=== PATIENT | male | born 1955 | race Caucasian/White ===

== ENCOUNTER 2017-07-22 07:10 | Outpatient (CLI) | payer BC | END 2017-07-22 07:11 | disposition home or self-care (01) | LOC: BICULT 07:10 | PROVIDERS: ATTEND Internal Medicine Rheumatology | DX: R79.89 Other specified abnormal findings of blood chemistry (principal) | CPT/HCPCS: 76705 ==

== ENCOUNTER 2018-02-12 17:27 | Inpatient (IN) | payer BC ==
--- NOTE | 2018-02-12 18:30 | RAD ---
SINGLE VIEW CHEST: Date: 02/12/18 COMPARISON: 03/11/16. HISTORY: Fever and sepsis. FINDINGS: Single view of the chest shows a normal sized cardiomediastinal silhouette. There is no evidence of c onsolidation, mass, or pleural effusion. The bones are unremarkable. IMPRESSION: No evidence of acute cardiopulmonary disease. POS: [facility]
[2018-02-12 18:40] LABS: #Eosinphils 0.1 thou/uL (0.0-0.7); #Lymphocytes 1.1 thou/uL (1.20-3.40); #Monocytes 1.1 thou/uL (0.11-0.59); #Neutrophils 10.7 thou/uL (1.40-6.50); %Basophils 0.4 % (0.0-1.0); %Eosinophils 0.4 % (0.0-10.0); %Lymphocytes 8.2 % (21.0-51.0); %Monocytes 8.1 % (0.0-10.0); Hemoglobin 14.4 g/dL (14.0-18.0); Mean Corpuscular HGB CONC 34.1 g/dL (32.0-36.0); Mean Corpuscular Hemoglobin 31.6 pg (27.0-31.0); Mean Corpuscular Volume 92.4 fL (78.0-98.0); Mean Platelet Volume 6.7 fL (7.4-10.4); Platelet Count 235 thou/uL (130-400); RBC Distribution Width 11.7 % (11.5-14.5); Red Blood Cell (RBC) Count 4.55 mill/uL (4.70-6.10); White Blood Cell (WBC) Count 12.9 thou/uL (4.8-10.8)
[2018-02-12 18:47] LABS: Bilirubin Negative (Negative); Blood, Urine Small (Negative); Clarity CLEAR (Clear); Glucose, Urine (Dipstick) Negative (Negative); Leukocyte Moderate (Negative); Nitrite Positive (Negative); Protein, Urine (Dipstick) Negative (Neg-Trace); Specific Gravity, Urine 1.009 (1.002-1.036); Urobilinogen 0.2 mg/dL (0.2-1.0); pH, Urine 5.5 (5.0-9.0)
[2018-02-12 18:50] LABS: Bacteria/HPF 4+ HPF (None Seen); Hyaline Casts/LPF 0-3 HYALINE CAST LPF (0-3 Hyaline); Pathc Cast-AUWi Flag 0.43 (0-2.49); RBC/HPF 0-3 HPF (0-3); Squamous Epithelial None Seen HPF (0-3); WBC/HPF 21-50 HPF (0-3)
[2018-02-12 19:02] LABS: ALT (SGPT) 41 U/L (8-55); AST (SGOT) 27 U/L (5-34); Albumin 4.4 g/dL (3.4-4.8); Alkaline Phosphatase 49 U/L (40-150); Anion Gap 13 mmol/L (10-20); BUN (Urea Nitrogen) 13 mg/dL (8.4-25.7); Bilirubin, Total 0.8 mg/dL (0.2-1.2); Calc. Creatinine Clearance 0 mL/min (70-130); Calcium 9.5 mg/dL (7.8-10.44); Carbon Dioxide 24 mmol/L (23-31); Chloride 102 mmol/L (98-107); Estimated GFR-MDRD 72; Globulin 2.4 g/dL (2.4-3.5); Glucose 100 mg/dL (80-115); Potassium 3.7 mmol/L (3.5-5.1); Protein, Total 6.8 g/dL (5.8-8.1); Sodium 135 mmol/L (136-145)
[2018-02-12] MEDS ORDERED: Cefepime 2 GM in Sodium Chloride 0.9% 100 ML IVPB SCH (19:15)
[2018-02-12 20:27] LABS: Bilirubin Negative (Negative); Blood, Urine Trace (Negative); Clarity CLEAR (Clear); Glucose, Urine (Dipstick) Negative (Negative); Leukocyte Small (Negative); Nitrite Positive (Negative); Protein, Urine (Dipstick) Negative (Neg-Trace); Specific Gravity, Urine 1.005 (1.002-1.036); Urobilinogen 0.2 mg/dL (0.2-1.0)
[2018-02-12 20:28] LABS: Bacteria/HPF None Seen HPF (None Seen); Hyaline Casts/LPF 0-3 HYALINE CAST LPF (0-3 Hyaline); RBC/HPF 0-3 HPF (0-3); Squamous Epithelial None Seen HPF (0-3)
[2018-02-12] MEDS ORDERED: Ondansetron HCl/PF 4 MG/2 ML Vial IVP PRN (21:11)
[2018-02-12] MEDS ORDERED: Ondansetron ODT 4 MG TAB SL PRN (21:11)
[2018-02-12] MEDS: Acetaminophen 325 MG TAB PO PRN (21:20)
[2018-02-12 21:22] VITALS: BMI 26.0
[2018-02-12] MEDS ORDERED: predniSONE 5 MG TAB PO PRN (22:06)
[2018-02-12] MEDS ORDERED: traMADol HCl 50 MG TAB PO PRN ×2 (22:06→23:00)
--- NOTE | 2018-02-12 22:15 | PDOC.FPRHP ---
- History of Present Illness Chief Complaint: Fever, headache, urinary hesitancy History of Present Illness: 62 yo M with h/o BPH, Chronic RA (on Remicade) comes in for fever and headache. 3 weeks ago was hospitalized for urosepsis while travelling in [place], received Levaquin and was discharged with resolution of symptoms. Last week he followed up with Dr. Strauss in clinic where everything checked out okay. This afternoon headache, fever (measured at 101F) and urinary hesitancy. They were worried since he experienced these same symptoms when he was hospitalized so came to the ED. Denies abdominal pain and dysuria. ED Course: UA results were consistent with UTI (Bacteria 4+, Mod LE, +Nitrites) and so was started on 2g Cefepime and cortes placed. - Allergies/Adverse Reactions Allergies Allergy/AdvReac Type Severity Reaction Status Date / Time No Known Drug Allergies Allergy Verified 02/12/18 21:09 - Home Medications Medication Instructions Recorded Confirmed Type Atorvastatin Calcium 20 mg PO HS 02/12/18 02/12/18 History HYDROcodone/Acetaminophen [Todd 1 each PO Q4HR PRN 02/12/18 02/12/18 History 10-325 Tablet] Hydroxychloroquine Sulfate 200 mg PO BID 02/12/18 02/12/18 History [Plaquenil] Tamsulosin HCl [Flomax] 0.4 mg PO DAILY 02/12/18 02/12/18 History predniSONE [Prednisone] 10 mg PO DAILY PRN 02/12/18 02/12/18 History traMADol HCl [Tramadol HCl] 50 mg PO BID PRN 02/12/18 02/12/18 History - History PMHx: BPH, Rheumatoid Arthritis, Hyperlipidemia PSHx: Tonsillectomy, Left wrist, Throat, Left eye, Left foot, Hernia, Left shoulder, Fractured skull, Right wrist FHx: Cancer (mom and dad) Social: Denies smoking, EtOH and illicit drug use. with kids. Occupation : Retired. - Review of Systems General: reports: fever/chills. denies: weight/appetite/sleep changes, night sweats, fatigue Eyes: denies: eye pain, vision changes ENT: denies: nasal congestion, rhinorrhea Respiratory: denies: cough, congestion, shortness of breath Cardiovascular: denies: chest pain, palpitation, edema, orthopnea Gastrointestinal: denies: nausea, vomiting, diarrhea, constipation, abdominal pain, GI bleeding Genitourinary: reports: other (urinary hesitancy). denies: incontinence, dysuria, polyuria, discharge Skin: denies: rashes, lesions, jaundice, itching Musculoskeletal: reports: arthritis/arthralgias (chronic from RA). denies: pain , tenderness, stiffness, swelling Neurological: denies: numbness, syncope, seizure, weakness, other Psychological: denies: anxiety, depression - Vital signs BP: [141/72] HR: [68] RR: [16] Tmax: [99.7] Pox: [94]% on [RA] Wt: [84.776kg] - Physical Exam Constitutional: NAD, awake, alert and oriented, well developed HEENT: normocephalic and atraumatic, no scleral icterus, good dention Heart: RRR, normal S1/S2, no murmurs/rubs/gallops, pulses present Lungs: CTAB, no respiratory distress, good air movement Abdomen: soft, non-tender Musculoskeletal: normal structure Skin: no rash/lesions, good turgor Psychiatric: normal mood and affect Additional comment: Rectal exam: no prostate tenderness FMR H&P: Results - Labs Result Diagrams: 02/12/18 18:25 02/12/18 18:25 Lab results: WBC 12.9 thou/uL (4.8-10.8) H 02/12/18 18:25 Hgb 14.4 g/dL (14.0-18.0) 02/12/18 18:25 Hct 42.1 % (42.0-52.0) 02/12/18 18:25 MCV 92.4 fL (78.0-98.0) 02/12/18 18:25 Plt Count 235 thou/uL (130-400) 02/12/18 18:25 Neutrophils % 83.0 % (42.0-75.0) H 02/12/18 18:25 Sodium 135 mmol/L (136-145) L 02/12/18 18:25 Potassium 3.7 mmol/L (3.5-5.1) 02/12/18 18:25 Chloride 102 mmol/L (98-107) 02/12/18 18:25 Carbon Dioxide 24 mmol/L (23-31) 02/12/18 18:25 BUN 13 mg/dL (8.4-25.7) 02/12/18 18:25 Creatinine 1.04 mg/dL (0.6-1.3) 02/12/18 18:25 Glucose 100 mg/dL (80-115) 02/12/18 18:25 Lactic Acid 1.0 mmol/L (0.5-2.2) 02/12/18 18:25 Calcium 9.5 mg/dL (7.8-10.44) 02/12/18 18:25 Total Bilirubin 0.8 mg/dL (0.2-1.2) 02/12/18 18:25 AST 27 U/L (5-34) 02/12/18 18:25 ALT 41 U/L (8-55) 02/12/18 18:25 Alkaline Phosphatase 49 U/L (40-150) 02/12/18 18:25 Serum Total Protein 6.8 g/dL (5.8-8.1) 02/12/18 18:25 Albumin 4.4 g/dL (3.4-4.8) 02/12/18 18:25 Urine Ketones Negative mg/dL (Negative) 02/12/18 20:16 Urine Blood Trace (Negative) H 02/12/18 20:16 Urine Nitrite Positive (Negative) H 02/12/18 20:16 Ur Leukocyte Esterase Small (Negative) H 02/12/18 20:16 Urine RBC 0-3 HPF (0-3) 02/12/18 20:16 Urine WBC 7-10 HPF (0-3) H 02/12/18 20:16 Ur Squamous Epith Cells None Seen HPF (0-3) 02/12/18 20:16 Urine Bacteria None Seen HPF (None Seen) 02/12/18 20:16 - Radiology Interpretation Chest x-ray Status: image reviewed by me, report reviewed by me FMR H&P: A/P - Problem List (1) Hyperlipidemia Current Visit: Yes Status: Chronic Code(s): E78.5 - HYPERLIPIDEMIA, UNSPECIFIED Qualifiers: Hyperlipidemia type: unspecified Qualified Code(s): E78.5 - Hyperlipidemia , unspecified (2) Rheumatoid arthritis Current Visit: Yes Status: Chronic Code(s): M06.9 - RHEUMATOID ARTHRITIS, UNSPECIFIED Qualifiers: Rheumatoid arthritis location: unspecified site Rheumatoid factor presence : unspecified presence Qualified Code(s): M06.9 - Rheumatoid arthritis, unspecified (3) BPH (benign prostatic hyperplasia) Current Visit: Yes Status: Chronic Code(s): N40.0 - BENIGN PROSTATIC HYPERPLASIA WITHOUT LOWER URINRY TRACT SYMP Qualifiers: Lower urinary tract symptom presence: symptoms present Lower urinary tract symptom detail: unspecified Qualified Code(s): N40.1 - Benign prostatic hyperplasia with lower urinary tract symptoms (4) Sepsis Current Visit: Yes Status: Acute Code(s): A41.9 - SEPSIS, UNSPECIFIED ORGANISM Qualifiers: Sepsis type: sepsis due to unspecified organism Qualified Code(s): A41.9 - Sepsis, unspecified organism (5) Urinary tract infection Current Visit: Yes Status: Acute Qualifiers: Urinary tract infection type: acute cystitis Hematuria presence: without hematuria Qualified Code(s): N30.00 - Acute cystitis without hematuria (6) Headache Current Visit: Yes Status: Acute Code(s): R51 - HEADACHE - Plan 62 yo with PMHx BPH and recent hospitalization for urosepsis presents with sepsis 2/2 recurrent UTI 1. Sepsis 2/2 UTI - s/p 2L NS in ED - Will start LR @ 125 ml/hr - Cefepime 2gm q24 (02/12) - Pending urine culture - Pending blood culture - Strict I/Os 2. Rheumatoid arthritis -Remicade 100mg IV, [id number] -Prednisone 10mg, po PRN -Hydroxychloroquine 200mg, po BID -Hydrocodone-Acetaminophen 10-324mg, po q4-6hrs, PRN: pain 3. HLD -Continue home meds of Atorvastatin 20mg, po, 1 tab, daily 4. BPH -Continue home meds Tamsulosin 0.4mg, po, daily 5. Headache: Patient reports usually gets OCAMPO with UTIs -Will give tylenol PPX: Lovenox for DVT ppx, no GI ppx indicated FMR H&P: Upper Level - Pertinent history 62 yo M who presented with fever, headaches and urinary hesitancy starting this afternoon. Fever to 101 at home. He was hospitalized 3 weeks ago in [place] for urosepsis and was d/c'd on levaquin. Saw Dr. Strauss last week for f/u and had a reportedly negative UA in clinic. He had been feeling well prior to today. - Pertinent findings Gen: awake, alert and oriented x3 HEENT: EOMI, conjunctiva non-injected CV: RRR, no murmur noted RESP: CTAB ABD: nondistended, bowel sounds present BACK: no CVAT Ext: no cyanosis or edema - Plan Date/Time: 02/12/18 9964 I, Kayleen Huntley MD, PGY-3, have evaluated this patient and agree with findings/ plan as outlined by risk management internship resident. Pertinent changes/additions are listed here. 62 yo M with PMHx recurrent UTI with urosepsis here with sepsis likely 2/2 UTI 1. Sepsis 2/2 UTI: s/p cefepime 2g in ED and fluids. LR @ 125 mL/hr. 2. BPH: Home Flomax. Per patient, urology recommended prostate resection. Will need close follow-up outpatient unless unable to void here. Cortes currently in place. Will need voiding trial and post-void residual tomorrow. 3. RA: On hydroxychloroquine, remicaide q8 weeks. Has tramadol, norco and prednisone at home PRN. Will give home meds here. 4. HLD: Atorvastatin PPX: Lovenox Attending Addendum - Attending Addendum Date/Time: 02/12/18 4175 I personally evaluated the patient and discussed the management with Dr. Orellana and Dr. Huntley I agree with the History, Examination, Assessment and Plan documented above with any addition or exceptions noted below. 62 yo male with history of BPH needed resection due to urinary retention presents for evaluation of UTI symptoms. Patient recently hospitalized for sepsis related to UTI. Has been since treated with resolution of symptoms and negative UA in clinic last week. This weekend, however, symptoms return. Now presents with positive UA. VS reviewed. Fever present. Labs reviewed. Elevated WBC but lactic acid WNL. Will admit for IV antibiotics. Continue cortes for urinary retention due to BPH obstruction. Cultures obtained and pending. Jolene
[2018-02-12] MEDS ORDERED: HYDROcodone/Acetaminophen 10/325 mg Tablet PO PRN (22:42)
[2018-02-13] MEDS ORDERED: HYDROcodone/Acetaminophen 10/325 mg Tablet PO SCH (01:00)
[2018-02-13] MEDS: Cefepime 2 GM in Sodium Chloride 0.9% 100 ML IVPB SCH ×2 (08:46→20:58)
[2018-02-13] MEDS: Tamsulosin HCl 0.4 MG CAP PO SCH (08:46)
[2018-02-13] MEDS: Hydroxychloroquine Sulfate 200 MG TAB PO SCH ×2 (08:46→21:05)
--- NOTE | 2018-02-13 09:02 | PDOC.FM ---
- Subjective Subjective: Patient denies any pain this AM. He has a cortes in place. He denies abdominal pain, fevers. He has not tried to eat anything, but denies N/V. - Objective MAR Reviewed: Yes Vital Signs & Weight: Vital Signs (12 hours) Temp Pulse Resp BP BP Pulse Ox 02/13/18 08:22 99.0 F 61 16 103/59 L 95 02/13/18 04:02 96.8 F L 62 16 100/56 L 93 L 02/13/18 00:00 98 02/12/18 23:15 97.0 F L 72 16 117/71 98 02/12/18 21:20 98.6 F 70 20 130/80 98 02/12/18 21:10 98.6 F 70 20 Weight Weight 84.623 kg I&O: 02/12/18 02/13/18 02/14/18 06:59 06:59 06:59 Intake Total 700 Output Total 1400 Balance -700 Result Diagrams: 02/12/18 18:25 02/12/18 18:25 <Mary Ann Purcell - Last Filed: 02/13/18 08:54> - Objective Vital Signs & Weight: Vital Signs (12 hours) Temp Pulse Resp BP BP Pulse Ox 02/13/18 12:30 98.6 F 63 16 108/71 94 L 02/13/18 09:05 99.0 F 61 16 95 02/13/18 08:22 99.0 F 61 16 103/59 L 95 02/13/18 04:02 96.8 F L 62 16 100/56 L 93 L Weight Weight 84.623 kg I&O: 02/12/18 02/13/18 02/14/18 06:59 06:59 06:59 Intake Total 700 Output Total 1400 200 Balance -700 -200 Result Diagrams: 02/12/18 18:25 02/12/18 18:25 <Ashok Estrella - Last Filed: 02/13/18 13:48> Phys Exam - Physical Examination Constitutional: NAD HEENT: moist MMs, sclera anicteric Respiratory: no wheezing, no rales, no rhonchi, clear to auscultation bilateral Cardiovascular: RRR, no significant murmur, no rub Gastrointestinal: soft, non-tender, no distention, positive bowel sounds Musculoskeletal: no edema, pulses present Neurological: non-focal, moves all 4 limbs Psychiatric: normal affect, A&O x 3 Skin: normal turgor, cap refill <2 seconds <Mary Ann Purcell - Last Filed: 02/13/18 08:54> Dx/Plan (1) Sepsis Code(s): A41.9 - SEPSIS, UNSPECIFIED ORGANISM Status: Acute QualifierTitle: Sepsis type: sepsis due to unspecified organism Qualified Code(s): A41.9 - Sepsis, unspecified organism (2) Urinary tract infection Status: Acute QualifierTitle: Urinary tract infection type: acute cystitis Hematuria presence: without hematuria Qualified Code(s): N30.00 - Acute cystitis without hematuria (3) BPH (benign prostatic hyperplasia) Code(s): N40.0 - BENIGN PROSTATIC HYPERPLASIA WITHOUT LOWER URINRY TRACT SYMP Status: Chronic QualifierTitle: Lower urinary tract symptom presence: symptoms present Lower urinary tract symptom detail: unspecified Qualified Code(s): N40.1 - Benign prostatic hyperplasia with lower urinary tract symptoms (4) Hyperlipidemia Code(s): E78.5 - HYPERLIPIDEMIA, UNSPECIFIED Status: Chronic QualifierTitle: Hyperlipidemia type: unspecified Qualified Code(s): E78.5 - Hyperlipidemia, unspecified (5) Rheumatoid arthritis Code(s): M06.9 - RHEUMATOID ARTHRITIS, UNSPECIFIED Status: Chronic QualifierTitle: Rheumatoid arthritis location: unspecified site Rheumatoid factor presence: unspecified presence Qualified Code(s): M06.9 - Rheumatoid arthritis, unspecified - Plan Plan: 62 yo with PMHx BPH and recent hospitalization for urosepsis presents with sepsis 2/2 recurrent UTI Sepsis 2/2 UTI Initially presented with tachycardia, fever, elevated WBC count, and UTI. s/p 2L NS and Cefepime in the ED. - LR @ 125 ml/hr - Cefepime 2gm q12h (02/12) - urine culture - blood culture - Strict I/Os - Cortes was placed in the ED, will remove at this time and do voiding trial Rheumatoid arthritis -Remicade 100mg IV, b4ctxam -Prednisone 10mg, po PRN -Hydroxychloroquine 200mg, po BID -Hydrocodone-Acetaminophen 10-324mg, po q4-6hrs, PRN: pain HLD -Continue home meds of Atorvastatin 20mg, po, 1 tab, daily BPH -Continue home meds Tamsulosin 0.4mg, po, daily -patient due to see his Urologist, Dr. Hein this week for consideration of surgery. <Mary Ann Purcell - Last Filed: 02/13/18 08:54> Attending Addendum - Attending Addendum Date/Time: 02/13/18 6442 I personally evaluated the patient and discussed the management with Dr. Purcell I agree with the History, Examination, Assessment and Plan documented above with any addition or exceptions noted below.Patient with RA on biological agent with Complicated recurrent UTI recently treated with Levaquin x 7 days .History of BPH discussing currently with Urologist about elective TURP. Cortes out patient and able to void patient feeling well, afebrile ok to dismiss to f/u with Urologist on at least two week po antibiotic when identity and sensitivities documented would rec continue IV antibiotic until then. <Ashok Estrella - Last Filed: 02/13/18 13:48>
[2018-02-13] MEDS: Acetaminophen 325 MG TAB PO PRN ×2 (09:04→18:31)
[2018-02-13] MEDS ORDERED: Famotidine 20 MG TAB PO SCH (18:00)
[2018-02-13] MEDS ORDERED: Melatonin 3 MG TAB PO PRN (20:46)
[2018-02-13] MEDS: Cefepime 2 GM, Admixture Fee 1 EACH in Sodium Chloride 0.9% 100 ML IVPB SCH (21:02)
[2018-02-13] MEDS: Atorvastatin Calcium 20 MG TAB PO SCH (21:06)
[2018-02-14 06:50] LABS: #Basophils 0.1 thou/uL (0.0-0.2); #Eosinphils 0.2 thou/uL (0.0-0.7); #Lymphocytes 1.6 thou/uL (1.20-3.40); #Monocytes 0.7 thou/uL (0.11-0.59); %Basophils 0.8 % (0.0-1.0); %Eosinophils 3.1 % (0.0-10.0); %Lymphocytes 21.1 % (21.0-51.0); %Monocytes 9.5 % (0.0-10.0); %Neutrophils 65.5 % (42.0-75.0); Hemoglobin 14.4 g/dL (14.0-18.0); Mean Corpuscular HGB CONC 33.6 g/dL (32.0-36.0); Mean Corpuscular Volume 95.2 fL (78.0-98.0); Mean Platelet Volume 6.9 fL (7.4-10.4); Platelet Count 218 thou/uL (130-400); RBC Distribution Width 11.9 % (11.5-14.5); Red Blood Cell (RBC) Count 4.49 mill/uL (4.70-6.10); White Blood Cell (WBC) Count 7.6 thou/uL (4.8-10.8)
[2018-02-14 07:11] LABS: Anion Gap 11 mmol/L (10-20); BUN (Urea Nitrogen) 13 mg/dL (8.4-25.7); Calc. Creatinine Clearance 90 mL/min (70-130); Carbon Dioxide 26 mmol/L (23-31); Chloride 106 mmol/L (98-107); Estimated GFR-MDRD 75; Glucose 114 mg/dL (80-115); Potassium 4.8 mmol/L (3.5-5.1); Sodium 138 mmol/L (136-145)
--- NOTE | 2018-02-14 08:07 | PDOC.FM ---
- Subjective Subjective: Patient denies any complaints overnight. He denies any fevers, abdominal pain, dysuria. He reports some difficulty with hesitancy and fully emptying his bladder. He reports tolerating PO and ambulating without difficulty. - Objective MAR Reviewed: Yes Vital Signs & Weight: Vital Signs (12 hours) Temp Pulse Resp BP Pulse Ox 02/13/18 20:38 98.6 F 66 16 104/57 L 97 Weight Weight 84.623 kg I&O: 02/13/18 02/14/18 02/15/18 06:59 06:59 06:59 Intake Total 700 1300 Output Total 1400 500 Balance -700 800 Result Diagrams: 02/14/18 06:43 02/14/18 06:43 <Mary Ann Purcell - Last Filed: 02/14/18 08:03> - Objective Vital Signs & Weight: Vital Signs (12 hours) Temp Pulse Resp BP Pulse Ox 02/14/18 08:25 98.3 F 65 18 94 L 02/14/18 08:20 98.3 F 65 18 108/72 94 L Weight Weight 84.623 kg I&O: 02/13/18 02/14/18 02/15/18 06:59 06:59 06:59 Intake Total 700 1300 Output Total 1400 500 Balance -700 800 Result Diagrams: 02/14/18 06:43 02/14/18 06:43 <Sharad Bowser - Last Filed: 02/14/18 11:35> Phys Exam - Physical Examination Constitutional: NAD HEENT: moist MMs Respiratory: no wheezing, no rales, no rhonchi, clear to auscultation bilateral Cardiovascular: RRR, no significant murmur, no rub Gastrointestinal: soft, non-tender, no distention, positive bowel sounds Musculoskeletal: no edema, pulses present Neurological: non-focal, moves all 4 limbs Psychiatric: normal affect, A&O x 3 Skin: normal turgor, cap refill <2 seconds <Mary Ann Purcell - Last Filed: 02/14/18 08:03> Dx/Plan (1) Sepsis Code(s): A41.9 - SEPSIS, UNSPECIFIED ORGANISM Status: Acute QualifierTitle: Sepsis type: sepsis due to unspecified organism Qualified Code(s): A41.9 - Sepsis, unspecified organism (2) Urinary tract infection Status: Acute QualifierTitle: Urinary tract infection type: acute cystitis Hematuria presence: without hematuria Qualified Code(s): N30.00 - Acute cystitis without hematuria (3) BPH (benign prostatic hyperplasia) Code(s): N40.0 - BENIGN PROSTATIC HYPERPLASIA WITHOUT LOWER URINRY TRACT SYMP Status: Chronic QualifierTitle: Lower urinary tract symptom presence: symptoms present Lower urinary tract symptom detail: unspecified Qualified Code(s): N40.1 - Benign prostatic hyperplasia with lower urinary tract symptoms (4) Hyperlipidemia Code(s): E78.5 - HYPERLIPIDEMIA, UNSPECIFIED Status: Chronic QualifierTitle: Hyperlipidemia type: unspecified Qualified Code(s): E78.5 - Hyperlipidemia, unspecified (5) Rheumatoid arthritis Code(s): M06.9 - RHEUMATOID ARTHRITIS, UNSPECIFIED Status: Chronic QualifierTitle: Rheumatoid arthritis location: unspecified site Rheumatoid factor presence: unspecified presence Qualified Code(s): M06.9 - Rheumatoid arthritis, unspecified - Plan Plan: 62 yo with PMHx BPH and recent hospitalization for sepsis 2/2 UTI presents with sepsis 2/2 recurrent UTI Sepsis 2/2 UTI Initially presented with tachycardia, fever, elevated WBC count, and UTI. s/p 2L NS and Cefepime in the ED. Patient has been getting recurrent UTI's due to urinary retention. He is supposed to get a prostate surgery soon per his urologist. He had a clean UA 3 days prior to admission in clinic. - Cefepime 2gm q12h (02/12) - urine culture, prelim cx growing gram negative rods - blood culture, NG @ 48 hrs - Strict I/Os - Cortes was placed in the ED, was removed yesterday and pt was able to void on his own. His post-void residual was 350 mL. - Will transition to PO abx today pending cx results and d/c patient home. Rheumatoid arthritis -Remicade 100mg IV, [id number] -Prednisone 10mg, po PRN -Hydroxychloroquine 200mg, po BID -Hydrocodone-Acetaminophen 10-324mg, po q4-6hrs, PRN: pain HLD -Continue home meds of Atorvastatin 20mg, po, 1 tab, daily BPH -Continue home meds Tamsulosin. -patient due to see his Urologist, Dr. eHin this week for consideration of surgery. <Mary Ann Purcell - Last Filed: 02/14/18 08:03> Attending Addendum - Attending Addendum Date/Time: 02/14/18 7326 I personally evaluated the patient and discussed the management with Dr. Purcell. I agree with and repeated the History, Examination, Assessment and Plan documented above with any addition or exceptions noted below. Sepsis resolved. Await sensitivities and discharge. Will d/w urology concerning retention, as they may desire for a continued cortes vs straight cath. RA stable. <Sharad Bowser - Last Filed: 02/14/18 11:35>
[2018-02-14] MEDS: Tamsulosin HCl 0.4 MG CAP PO SCH (09:03)
[2018-02-14] MEDS: Enoxaparin Sodium 40 MG/0.4 ML SYRINGE SC SCH (09:03)
[2018-02-14] MEDS: Cefepime 2 GM, Admixture Fee 1 EACH in Sodium Chloride 0.9% 100 ML IVPB SCH ×2 (09:03→19:47)
[2018-02-14] MEDS: Famotidine 20 MG TAB PO SCH ×2 (09:03→20:23)
[2018-02-14] MEDS: Hydroxychloroquine Sulfate 200 MG TAB PO SCH ×2 (09:03→20:24)
[2018-02-14] MEDS: Acetaminophen 325 MG TAB PO PRN (17:53)
[2018-02-14] MEDS: Atorvastatin Calcium 20 MG TAB PO SCH (20:23)
[2018-02-15 08:04] VITALS: BP 125/74; TEMP 98.1
[2018-02-15] MEDS: Tamsulosin HCl 0.4 MG CAP PO SCH (08:47)
[2018-02-15] MEDS: Famotidine 20 MG TAB PO SCH (08:47)
[2018-02-15] MEDS: Cefepime 2 GM, Admixture Fee 1 EACH in Sodium Chloride 0.9% 100 ML IVPB SCH (08:47)
[2018-02-15] MEDS: Hydroxychloroquine Sulfate 200 MG TAB PO SCH (08:47)
[2018-02-15] MEDS: Enoxaparin Sodium 40 MG/0.4 ML SYRINGE SC SCH (08:48)
--- NOTE | 2018-02-15 09:17 | PDOC.FM ---
- Subjective Subjective: Pt doing well this AM. Denies any complaints. Tolerating PO and ambulating without difficulty. Has been doing self caths yesterday without difficulty and denies any pain. - Objective MAR Reviewed: Yes Vital Signs & Weight: Vital Signs (12 hours) Temp Pulse Resp BP Pulse Ox 02/15/18 08:03 98.1 F 66 16 125/74 94 L Weight Weight 84.623 kg I&O: 02/14/18 02/15/18 02/16/18 06:59 06:59 06:59 Intake Total 1300 550 Output Total 500 1150 Balance 800 -600 Result Diagrams: 02/14/18 06:43 02/14/18 06:43 <Mary Ann Purcell - Last Filed: 02/15/18 09:15> - Objective Vital Signs & Weight: Vital Signs (12 hours) Temp Pulse Resp BP Pulse Ox 02/15/18 08:20 98.1 F 66 16 94 L 02/15/18 08:03 98.1 F 66 16 125/74 94 L Weight Weight 84.623 kg I&O: 02/14/18 02/15/18 02/16/18 06:59 06:59 06:59 Intake Total 1300 550 Output Total 500 1150 Balance 800 -600 Result Diagrams: 02/14/18 06:43 02/14/18 06:43 <Sharad Bowser - Last Filed: 02/15/18 13:10> Phys Exam - Physical Examination Constitutional: NAD HEENT: moist MMs, sclera anicteric Respiratory: no wheezing, no rales, no rhonchi, clear to auscultation bilateral Cardiovascular: RRR, no significant murmur, no rub Gastrointestinal: soft, non-tender, no distention, positive bowel sounds Musculoskeletal: no edema, pulses present Neurological: non-focal, moves all 4 limbs Psychiatric: normal affect, A&O x 3 <Mary Ann Purcell - Last Filed: 02/15/18 09:15> Dx/Plan (1) Sepsis Code(s): A41.9 - SEPSIS, UNSPECIFIED ORGANISM Status: Acute QualifierTitle: Sepsis type: sepsis due to unspecified organism Qualified Code(s): A41.9 - Sepsis, unspecified organism (2) Urinary tract infection Status: Acute QualifierTitle: Urinary tract infection type: acute cystitis Hematuria presence: without hematuria Qualified Code(s): N30.00 - Acute cystitis without hematuria (3) BPH (benign prostatic hyperplasia) Code(s): N40.0 - BENIGN PROSTATIC HYPERPLASIA WITHOUT LOWER URINRY TRACT SYMP Status: Chronic QualifierTitle: Lower urinary tract symptom presence: symptoms present Lower urinary tract symptom detail: unspecified Qualified Code(s): N40.1 - Benign prostatic hyperplasia with lower urinary tract symptoms (4) Hyperlipidemia Code(s): E78.5 - HYPERLIPIDEMIA, UNSPECIFIED Status: Chronic QualifierTitle: Hyperlipidemia type: unspecified Qualified Code(s): E78.5 - Hyperlipidemia, unspecified (5) Rheumatoid arthritis Code(s): M06.9 - RHEUMATOID ARTHRITIS, UNSPECIFIED Status: Chronic QualifierTitle: Rheumatoid arthritis location: unspecified site Rheumatoid factor presence: unspecified presence Qualified Code(s): M06.9 - Rheumatoid arthritis, unspecified - Plan Plan: 62 yo with PMHx BPH and recent hospitalization for sepsis 2/2 UTI presents with sepsis 2/2 recurrent UTI Sepsis 2/2 UTI Initially presented with tachycardia, fever, elevated WBC count, and UTI. s/p 2L NS and Cefepime in the ED. Patient has been getting recurrent UTI's due to urinary retention. He is supposed to get a prostate surgery soon per his urologist. He had a clean UA 3 days prior to admission in clinic. - Cefepime 2gm q12h (02/12), will d/c today and start levaquin for 7 days - urine culture grew Klebsiella sensitive to everything except macrobid - blood culture, NG @ 48 hrs - Strict I/Os - Doing self caths per urology recs and will f/u with urology outpt - Will transition to PO abx today and d/c patient home. Rheumatoid arthritis -Remicade 100mg IV, [id number] -Prednisone 10mg, po PRN -Hydroxychloroquine 200mg, po BID -Hydrocodone-Acetaminophen 10-324mg, po q4-6hrs, PRN: pain HLD -Continue home meds of Atorvastatin 20mg, po, 1 tab, daily BPH -Continue home meds Tamsulosin. -patient due to see his Urologist, Dr. Hein tomorrow for consideration of surgery. <Mary Ann Purcell - Last Filed: 02/15/18 09:15> Attending Addendum - Attending Addendum Date/Time: 02/15/18 1432 I personally evaluated the patient and discussed the management with Dr. Purcell. I agree with and repeated the History, Examination, Assessment and Plan documented above with any addition or exceptions noted below. No dysuria/urgency/hematuria. No f/c. Outpatient antibiotics and follow up with urology. <Sharad Bowser - Last Filed: 02/15/18 13:10>
--- NOTE | 2018-02-16 11:17 | DIS-2 ---
DATE OF ADMISSION: 02/12/2018 DATE OF DISCHARGE: 02/15/2018 ADMITTING ATTENDING: Dr. Azra Vines. DISCHARGE ATTENDING: Dr. Sharad Bowser. ADMITTING RESIDENT: Dr. Cecy Orellana. DISCHARGE RESIDENT: Dr. Mary Ann Purcell. CONSULTATIONS: None. PROCEDURES: None. PRIMARY DIAGNOSES: 1. Sepsis. 2. Urinary tract infection. 3. Urinary retention. 4. Leukocytosis. SECONDARY DIAGNOSES: 1. Benign prostatic hypertrophy. 2. Hyperlipidemia. 3. Rheumatoid arthritis. DISCHARGE MEDICATIONS: 1. Atorvastatin 20 mg p.o. at bedtime. 2. [place] 10/325 mg 1 tab p.o. q.4 hours p.r.n. pain. 3. Plaquenil 200 mg p.o. b.i.d. 4. Prednisone 10 mg p.o. daily p.r.n. pain. 5. Bactrim-DS 1 tab p.o. b.i.d. for 7 days. 6. Tamsulosin 0.4 mg p.o. daily. 7. Tramadol 50 mg p.o. b.i.d. p.r.n. pain. DISCONTINUED MEDICATIONS: None. HISTORY OF PRESENT ILLNESS AND HOSPITAL COURSE: This is a 62-year-old male with a history of rheumat oid arthritis and BPH, who presented to the ER septic with a fever and white blood cell count of 12.9 . The patient was found to have a urinary tract infection with positive nitrites, moderate leukocyte esterase, 21-50 white blood cell count, 4+ bacteria. The patient had recently been hospitalized 2 w eeks ago when he had become bacteremic and septic secondary to a Klebsiella urinary tract infection. He has been treated with Levaquin for this. The patient had been being worked up for urinary retent ion by urologist, Dr. Hein and had plans for possible TURP in the future. The patient was treat ed initially with cefepime and improved significantly from a sepsis standpoint, he was also given flu ids initially. He initially had a Longo placed and then on his second day of hospitalization, the Fo andrey was removed and he was given a voiding trial; however, he was found to have a postvoid residual o f 350. The patient's urologist was contacted and it was discussed for him to be sent home either wit h self catheterization 4 times daily or a Longo whichever the patient desired. The patient elected t o do self catheterization 4 times daily. The patient was able to do this without any difficulty. Th e urine culture grew out Klebsiella pneumonia that was pansensitive except indeterminate to nitrofura ntoin. He was discharged home on Bactrim for 7-day course. The patient has a followup appointment w ith his urologist the day after discharge. DISPOSITION: Stable. DISCHARGE INSTRUCTIONS: 1. Location: Home. 2. Diet: Heart healthy. 3. Activity: As tolerated. 4. Follow up with Dr. Strauss within 7-[address] Hein within 1-3 days.
== END 2018-02-15 10:45 | disposition home or self-care (01) | DRG 872 ==
LOC: ERS 17:27 → ONC 19:35 → OBSVTOIN 19:35
PROVIDERS: ADMIT Student in an Organized Health Care Education/Training Program; ATTEND Student in an Organized Health Care Education/Training Program
DX: A41.9 Sepsis, unspecified organism (principal); N39.0 Urinary tract infection, site not specified; N40.1 Benign prostatic hyperplasia with lower urinary tract symptoms; R39.11 Hesitancy of micturition; M06.9 Rheumatoid arthritis, unspecified; E78.5 Hyperlipidemia, unspecified; Z79.899 Other long term (current) drug therapy
CPT/HCPCS: 36415; 51702; 71045; 80048; 80053; 81003; 81015; 83605; 85025; 87040; 87077; 87086; 87186; 96365; J0692; J1650; J7050

== ENCOUNTER 2023-03-08 08:56 | Outpatient (CLI) | payer MEDICARE, BC | END 2023-03-08 08:57 | disposition home or self-care (01) | LOC: BICMRI 08:56 | PROVIDERS: ATTEND Physician Assistant | DX: H90.3 Sensorineural hearing loss, bilateral (principal) | CPT/HCPCS: 82565 ==